=== PATIENT | female | born 1955 | race Asian ===

== ENCOUNTER 2018-07-30 11:07 | Emergency (ER) | payer OTHER ==
[~2018-07-30] VITALS: Ht 152.4 cm; Wt 59.1 kg
[2018-07-30] MEDS ORDERED: LOSA25TA16 PO (11:17)
[2018-07-30] MEDS ORDERED: ALBU8HFA IH (11:17)
[2018-07-30] MEDS ORDERED: AMLO-511 PO (11:17)
[2018-07-30] MEDS ORDERED: ALBUTEROL SULFATE 2.5 MG/0.5 ML NEB SOLUTION NEB ONE (12:30)
[2018-07-30] MEDS ORDERED: IPRATROPIUM BROMIDE 0.5 MG/2.5 ML NEB SOLUTION NEB ONE (12:30)
[2018-07-30] MEDS ORDERED: PredniSONE 20 MG TABLET PO ONE (12:30)
[2018-07-30 12:45] LABS: BASOPHILS % (AUTO) 0.7 % (0.0-2.0); EOSINOPHILS % (AUTO) 3.3 % (1.0-6.0); HEMATOCRIT 37.8 % (36-46); HEMOGLOBIN 13.6 g/dL (12.0-16.0); LYMPHOCYTES # (AUTO) 1.8 K/uL (1.0-4.8); LYMPHOCYTES % (AUTO) 19.3 % (22.0-44.0); MEAN CORPUSCULAR HEMOGLOBIN 28.6 pg (26.0-34.0); MEAN CORPUSCULAR VOLUME 79 fL (80-100); MONOCYTES # (AUTO) 0.6 K/uL (0.1-1.0); MONOCYTES % (AUTO) 6.1 % (2.0-9.0); NEUTROPHILS # (AUTO) 6.4 K/uL (1.8-7.7); NEUTROPHILS % (AUTO) 70.6 % (40.0-70.0); PLATELET COUNT (AUTO) 319 K/uL (150-450); RED BLOOD CELL COUNT(AUTO) 4.77 MIL/uL (4.00-5.20); RED CELL DISTRIBUTION WIDTH 16.2 % (11.5-14.5)
[2018-07-30 12:54] LABS: ANION GAP 10 mmol/L (8-16); CALCIUM, TOTAL 9.4 mg/dL (8.8-10.5); CARBON DIOXIDE 27 mmol/L (22-29); CHLORIDE 102 mmol/L (98-107); CREATININE 0.64 mg/dL (0.60-1.30); GLOMERULAR FILTR. RATE CALC > 60 mL/min (>60); GLUCOSE,RANDOM 126 mg/dL (70-110); POTASSIUM 3.8 mmol/L (3.5-5.1); SODIUM SERUM 139 mmol/L (136-145); UREA NITROGEN, BLOOD 13 mg/dL (7-18)
[2018-07-30 13:07] LABS: B-TYPE NATRIURETIC PEPTIDE 10 pg/mL (0-100)
[2018-07-30 13:21] LABS: ALANINE AMINOTRANSFERASE 24 U/L (12-78); ALKALINE PHOSPHATASE 97 U/L (46-116); ASPARTATE AMINOTRANSFERASE 21 U/L (15-37); BILIRUBIN,TOTAL 0.7 mg/dL (0.1-1.0); CREATINE KINASE, TOTAL ONLY 116 U/L (26-192); TOTAL PROTEIN, SERUM 8.3 g/dL (6.4-8.2)
[2018-07-30 13:54] VITALS: BP 146/78
== END 2018-07-30 14:30 | disposition home or self-care (01) ==
LOC: EMS 11:09
DX: J44.1 Chronic obstructive pulmonary disease with (acute) exacerbation (principal); I10 Essential (primary) hypertension; Z90.710 Acquired absence of both cervix and uterus; Z79.899 Other long term (current) drug therapy
CPT/HCPCS: 71045; 80053; 82550; 83880; 84484; 85025; 85379; 93005; 94640; 99285; J7512

== ENCOUNTER 2019-11-09 08:49 | Emergency (ER) | payer OTHER ==
[~2019-11-09] VITALS: Ht 152.4 cm; Wt 60.0 kg
[~2019-11-09 08:49] MED LIST: ALBU8HFA IH; AMLO5TAB9 PO; LOSA25TA71 PO
[2019-11-09] MEDS ORDERED: PredniSONE 20 MG TABLET PO ONE (09:45)
[2019-11-09] MEDS ORDERED: GuaiFENesin/D-METHORPHAN [SUGAR-FREE] 200-20MG/10 ML SYRUP UDCUP PO ONE (09:45)
[2019-11-09] MEDS ORDERED: ACETAMINOPHEN 500 MG TABLET PO ONE (09:45)
[2019-11-09 11:19] VITALS: BP 138/82
== END 2019-11-09 11:43 | disposition home or self-care (01) ==
LOC: EMS 08:51
DX: J45.901 Unspecified asthma with (acute) exacerbation (principal); J06.9 Acute upper respiratory infection, unspecified; R42 Dizziness and giddiness; I10 Essential (primary) hypertension; Z90.710 Acquired absence of both cervix and uterus; Z79.899 Other long term (current) drug therapy
CPT/HCPCS: 99284; J7512

== ENCOUNTER 2020-11-22 05:28 | Day surgery (SDC) | payer OTHER ==
[2020-11-20 09:41] LABS: COVID AG,FIA SOURCE NASOPHARYNGEAL
[~2020-11-22] VITALS: Ht 152.4 cm; Wt 65.0 kg
[~2020-11-22 05:28] MED LIST changes: +ALEN70TA80 PO; +AMLO-257 PO; -AMLO5TAB9 PO; +ATOR40TA71 PO; +CALC-26 PO; +KETOROLAC TROMETHAMINE 0.5% 5 ML OPHTHALMIC SOLUTION ONE; +LOSA100T58 PO; -LOSA25TA71 PO; +MOXIFLOXACIN HCL 0.5% 3 ML OPHTHALMIC SOLUTION ONE; +OMEP20CA13 PO; +PHENYLEPHRINE HCL 2.5% 2 ML OPHTHALMIC SOLUTION ONE; +RINGERS SOLUTION,LACTATED 500 ML IV ONE; +TROPICAMIDE 1% 2 ML OPHTHALMIC SOLUTION ONE
[2020-11-22] MEDS ORDERED: FentaNYL CITRATE PF 100 MCG/2 ML VIAL IVP ONE (05:29)
[2020-11-22] MEDS ORDERED: MIDAZOLAM HCL 2 MG/2 ML VIAL IVP ONE (05:29)
[2020-11-22] MEDS ORDERED: POVIDONE-IODINE 10% 15 ML SOLUTION UD TP ONE (05:29)
[2020-11-22] MEDS ORDERED: TETRACAINE HCL/PF 0.5% 4 ML OPHTHALMIC SOLUTION OU ONE (05:29)
[2020-11-22] MEDS ORDERED: EPINEPHrine 1:1,000 [1 MG/ML] AMP IM ONE (05:29)
[2020-11-22] MEDS ORDERED: LIDOCAINE/PF 1% 2 ML VIAL IM ONE (05:29)
[2020-11-22] MEDS ORDERED: BALANCED SALT 15 ML OPHTHALMIC IRRIG.SOLN OU ONE (05:29)
[2020-11-22] MEDS ORDERED: HYALURONATE SOD/CHONDROITIN SOD 0.5 ML VIAL IO ONE (05:29)
[2020-11-22] MEDS ORDERED: HYALURONATE SODIUM 12 MG/ML 0.8 ML SYRINGE IO ONE (05:29)
[2020-11-22] MEDS ORDERED: RINGERS SOLUTION,LACTATED 500 ML IV ONE (06:30)
[2020-11-22] MEDS: MOXIFLOXACIN HCL 0.5% 3 ML OPHTHALMIC SOLUTION OD SCH ×3 (06:45→06:57)
[2020-11-22] MEDS: TROPICAMIDE 1% 2 ML OPHTHALMIC SOLUTION OD SCH ×3 (06:45→06:57)
[2020-11-22] MEDS: KETOROLAC TROMETHAMINE 0.5% 5 ML OPHTHALMIC SOLUTION OD SCH ×3 (06:45→06:57)
[2020-11-22] MEDS: PHENYLEPHRINE HCL 2.5% 2 ML OPHTHALMIC SOLUTION OD SCH ×3 (06:45→06:57)
== END 2020-11-22 10:40 | disposition home or self-care (01) ==
LOC: SURGERY 05:28
PROVIDERS: ATTEND Ophthalmology
DX: H25.11 Age-related nuclear cataract, right eye (principal); I10 Essential (primary) hypertension; E78.00 Pure hypercholesterolemia, unspecified; M19.90 Unspecified osteoarthritis, unspecified site; G89.29 Other chronic pain; J45.909 Unspecified asthma, uncomplicated; Z90.710 Acquired absence of both cervix and uterus; Z79.899 Other long term (current) drug therapy; Z98.890 Other specified postprocedural states
CPT/HCPCS: 66984; 87426; 93005; C9803; J0171; J2250; J3010; J3490 ×2; J7120; V2632

== ENCOUNTER 2021-01-24 05:32 | Day surgery (SDC) | payer OTHER ==
[2021-01-22 11:33] LABS: COVID AG,FIA SOURCE NASOPHARYNGEAL
[~2021-01-24] VITALS: Ht 152.4 cm; Wt 65.5 kg
[2021-01-24] MEDS ORDERED: FentaNYL CITRATE PF 100 MCG/2 ML VIAL IVP ONE (05:33)
[2021-01-24] MEDS ORDERED: MIDAZOLAM HCL 2 MG/2 ML VIAL IVP ONE (05:33)
[2021-01-24] MEDS ORDERED: RINGERS SOLUTION,LACTATED 500 ML IV ONE (06:00)
[2021-01-24] MEDS: MOXIFLOXACIN HCL 0.5% 3 ML OPHTHALMIC SOLUTION OS SCH ×3 (06:13→06:25)
[2021-01-24] MEDS: TROPICAMIDE 1% 2 ML OPHTHALMIC SOLUTION OS SCH ×3 (06:13→06:25)
[2021-01-24] MEDS: KETOROLAC TROMETHAMINE 0.5% 5 ML OPHTHALMIC SOLUTION OS SCH ×3 (06:13→06:25)
[2021-01-24] MEDS: PHENYLEPHRINE HCL 2.5% 2 ML OPHTHALMIC SOLUTION OS SCH ×3 (06:13→06:25)
[2021-01-24 06:23] LABS: GLUCOMETER DEV NAME(LOC) SDS.; GLUCOSE,POINT OF CARE 148 MG/DL (70-110)
[2021-01-24] MEDS ORDERED: BALANCED SALT 15 ML OPHTHALMIC IRRIG.SOLN ONE (18:15)
[2021-01-24] MEDS ORDERED: POVIDONE-IODINE 10% 15 ML SOLUTION UD ONE (18:15)
[2021-01-24] MEDS ORDERED: EPINEPHrine 1:1,000 [1 MG/ML] AMP ONE (18:15)
[2021-01-24] MEDS ORDERED: TETRACAINE HCL/PF 0.5% 4 ML OPHTHALMIC SOLUTION ONE (18:15)
[2021-01-24] MEDS ORDERED: CHONDR SULF A SOD/HYALURONATE 1.05 ML KIT IO ONE (18:15)
[2021-01-24] MEDS ORDERED: LIDOCAINE/PF 1% 2 ML VIAL ONE (18:15)
== END 2021-01-24 08:05 | disposition home or self-care (01) ==
LOC: SURGERY 05:32
PROVIDERS: ATTEND Ophthalmology
DX: H25.11 Age-related nuclear cataract, right eye (principal); E78.00 Pure hypercholesterolemia, unspecified; I10 Essential (primary) hypertension; Z90.710 Acquired absence of both cervix and uterus; Z98.890 Other specified postprocedural states; Z98.41 Cataract extraction status, right eye; Z79.899 Other long term (current) drug therapy
CPT/HCPCS: 66984; 82962; 87426; A9575; C9803; J0171; J2250; J3010; J3490; J7120; V2632